=== PATIENT | male | born 1955 | race Caucasian/White ===

== ENCOUNTER 2016-11-27 15:00 | Observation (INO) | payer BC, OTHER ==
[~2016-11-27] VITALS: Ht 162.6 cm; Wt 76.4 kg
[~2016-11-27 15:00] MED LIST: LISI-360 PO; LORA1TAB PO; PHEN100 PO; SERO300T PO; SERT100 PO
[2016-11-27 15:09] VITALS: BP 160/124; PULSE 96; RESP 16; TEMP 97.4; O2SAT 95
[2016-11-27] MEDS ORDERED: SODIUM CHLOR 0.9% 1000 ML INJ 1,000 ML IV SCH (15:21)
--- NOTE | 2016-11-27 15:28 | PD ---
HPI Chief Complaint: GI Complaint Time Seen by Provider: 15:14 Travel History International Travel<30 days: No Contact w/Intl Traveler<30days: No Traveled to known affect area: No History of Present Illness HPI The patient is a 61-year-old male who presents to the emergency department for nausea, vomiting, diarrhea. The patient notes a history of intermittent dizziness for one month, and intermittent but progressive over the last week. The patient then developed some nausea earlier today followed by a projectile vomiting and abdominal cramping and subsequent diarrhea. Patient has multiple episodes of diarrhea which she describes as loose, watery, brown, will small amount of bright red blood when wiping. The patient has not followed up with his physician over the last month for his dizziness, did have an appointment but forgot his outpatient labs and subsequently missed his appointment. He does have an appointment in the near future with his primary physician once again. Patient does have a history of alcoholism, quit drinking alcohol in October 2014. He denies any recent head trauma denies any current headache or focal deficits. The patient's abdominal pain and cramping is diffuse, intermittent, and associated with diarrhea. The patient denies any fever, chills, or sweats. PFSH Past Medical History Bipolar Disorder: Yes (PT DENIES) Anxiety: Yes Depression: Yes Cancer: No Cardiovascular Problems: Yes (HTN) Diabetes: No Diminished Hearing: Yes (PT STATES "I HAVE A HEARING LOSS PROBLEM") Gastrointestinal Disorders: No Genitourinary: No Hepatitis: Yes (Hep C) Hiatal Hernia: No Hypertension: Yes Implanted Vascular Access Dvce: No Insomnia: Yes Musculoskeletal: No Neurologic: No Psychiatric: Yes (BIPOLAR PT DENIES) Respiratory: No Immunizations Current: Yes Thyroid Disease: No Past Surgical History Oral Surgery: Yes (TONSILLECTOMY CHILD) Pacemaker: No Tonsillectomy: Yes (childhood) Other Surgery: Yes ("benign lump taken off my back") Social History Alcohol Use: No (DENIES) Tobacco Use: Yes (1 ppd) Substance Use: Yes (THC, ETOH in the past) Allergies-Medications (Allergen,Severity, Reaction): Coded Allergies: No Known Allergies (Verified , 11/27/16) Reported Meds & Prescriptions Reported Meds & Active Scripts Active Dilantin 100 Mg Kapseals (Phenytoin Sodium) 100 Mg Cap 200 Mg PO BID Reported Seroquel 300 mg (Quetiapine Fumarate) 300 Mg Tab 800 Mg PO HS Lorazepam 1 Mg Tab 1 Mg PO BID Zoloft (Sertraline HCl) 100 Mg Tab 200 Mg PO DAILY Lisinopril 10 mg (Lisinopril) 10 Mg Tab 10 Mg PO DAILY Review of Systems Except as stated in HPI: all other systems reviewed are Neg General / Constitutional: No: Fever HENT: Positive: Lightheadedness Cardiovascular: No: Chest Pain or Discomfort, Palpitations, Tachycardia Respiratory: No: Shortness of Breath Gastrointestinal: Positive: Nausea, Vomiting, Diarrhea, Abdominal Pain Genitourinary: No: Dysuria Musculoskeletal: No: Myalgias, Arthralgias Neurologic: Positive: Dizziness Physical Exam Narrative GENERAL: Awake, alert, pleasant 61-year-old male who appears his stated age and is in no acute respiratory distress. SKIN: Focused skin assessment warm/dry. HEAD: Atraumatic. Normocephalic. EYES: Pupils equal and round. No scleral icterus. No injection or drainage. ENT: No nasal bleeding or discharge. Mucous membranes pink and moist. NECK: Trachea midline. No JVD. CARDIOVASCULAR: Regular rate and rhythm. No murmur appreciated. RESPIRATORY: No accessory muscle use. Clear to auscultation. Breath sounds equal bilaterally. GASTROINTESTINAL: Abdomen soft, non-tender, nondistended. No rebound tenderness , guarding, rigidity. Rectal: No gross blood. Guaiac positive. MUSCULOSKELETAL: No obvious deformities. No clubbing. No cyanosis. No edema. NEUROLOGICAL: Awake and alert. No obvious cranial nerve deficits. Motor grossly within normal limits. Normal speech. Nonfocal. PSYCHIATRIC: Appropriate mood and affect; insight and judgment normal. Data Data Last Documented VS Vital Signs Date Time Temp Pulse Resp B/P Pulse Ox O2 Delivery O2 Flow Rate FiO2 11/27/16 16:20 16 11/27/16 16:15 98 139/87 99 Room Air 11/27/16 15:09 97.4 Orders Complete Blood Count With Diff (11/27/16 15:21) Comprehensive Metabolic Panel (11/27/16 15:21) Lactic Acid (11/27/16 15:21) Prothrombin Time / Inr (Pt) (11/27/16 15:21) Act Partial Throm Time (Ptt) (11/27/16 15:21) Ct Abd/Pel W/O Iv Contrast (11/27/16 15:21) Iv Access Insert/Monitor (11/27/16 15:21) Ecg Monitoring (11/27/16 15:21) Oximetry (11/27/16 15:21) Morphine Inj (Morphine Inj) (11/27/16 15:30) Ondansetron Inj (Zofran Inj) (11/27/16 15:30) Sodium Chlor 0.9% 1000 Ml Inj (Ns 1000 M (11/27/16 15:21) Sodium Chloride 0.9% Flush (Ns Flush) (11/27/16 15:30) C Diff Toxin Pcr (11/27/16 16:25) Enteric Path (Stool) (11/27/16 16:25) Blood Culture (11/27/16 16:26) Ciprofloxacin 400 Mg Premix (Cipro 400 M (11/27/16 16:30) Metronidazole 500 Mg Inj (Flagyl 500 Mg (11/27/16 16:30) Labs Laboratory Tests Test 11/27/16 15:55 White Blood Count 19.2 TH/MM3 Red Blood Count 4.99 MIL/MM3 Hemoglobin 15.6 GM/DL Hematocrit 45.6 % Mean Corpuscular Volume 91.3 FL Mean Corpuscular Hemoglobin 31.3 PG Mean Corpuscular Hemoglobin 34.3 % Concent Red Cell Distribution Width 12.0 % Platelet Count 344 TH/MM3 Mean Platelet Volume 7.9 FL Neutrophils (%) (Auto) 86.8 % Lymphocytes (%) (Auto) 5.4 % Monocytes (%) (Auto) 5.7 % Eosinophils (%) (Auto) 0.3 % Basophils (%) (Auto) 1.8 % Neutrophils # (Auto) 16.7 TH/MM3 Lymphocytes # (Auto) 1.0 TH/MM3 Monocytes # (Auto) 1.1 TH/MM3 Eosinophils # (Auto) 0.1 TH/MM3 Basophils # (Auto) 0.3 TH/MM3 CBC Comment DIFF FINAL Differential Comment Prothrombin Time 11.3 SEC Prothromb Time International 1.0 RATIO Ratio Activated Partial 26.1 SEC Thromboplast Time Sodium Level 136 MEQ/L Potassium Level 4.5 MEQ/L Chloride Level 102 MEQ/L Carbon Dioxide Level 23.6 MEQ/L Anion Gap 10 MEQ/L Blood Urea Nitrogen 31 MG/DL Creatinine 2.30 MG/DL Estimat Glomerular Filtration 29 ML/MIN Rate Random Glucose 121 MG/DL Lactic Acid Level 1.7 mmol/L Calcium Level 9.3 MG/DL Total Bilirubin 0.7 MG/DL Aspartate Amino Transf 25 U/L (AST/SGOT) Alanine Aminotransferase 29 U/L (ALT/SGPT) Alkaline Phosphatase 100 U/L Total Protein 7.9 GM/DL Albumin 4.2 GM/DL MDM Medical Decision Making Medical Screen Exam Complete: Yes Emergency Medical Condition: Yes Medical Record Reviewed: Yes Interpretation(s) Last Impressions Abdomen/Pelvis CT 11/27/16 1521 Signed Impressions: Service Date/Time: Sunday, November 27, 2016 15:29 - CONCLUSION: No acute disease. Carmelo Potter MD Laboratory Tests Test 11/27/16 15:55 White Blood Count 19.2 TH/MM3 Red Blood Count 4.99 MIL/MM3 Hemoglobin 15.6 GM/DL Hematocrit 45.6 % Mean Corpuscular Volume 91.3 FL Mean Corpuscular Hemoglobin 31.3 PG Mean Corpuscular Hemoglobin 34.3 % Concent Red Cell Distribution Width 12.0 % Platelet Count 344 TH/MM3 Mean Platelet Volume 7.9 FL Neutrophils (%) (Auto) 86.8 % Lymphocytes (%) (Auto) 5.4 % Monocytes (%) (Auto) 5.7 % Eosinophils (%) (Auto) 0.3 % Basophils (%) (Auto) 1.8 % Neutrophils # (Auto) 16.7 TH/MM3 Lymphocytes # (Auto) 1.0 TH/MM3 Monocytes # (Auto) 1.1 TH/MM3 Eosinophils # (Auto) 0.1 TH/MM3 Basophils # (Auto) 0.3 TH/MM3 CBC Comment DIFF FINAL Differential Comment Prothrombin Time 11.3 SEC Prothromb Time International 1.0 RATIO Ratio Activated Partial 26.1 SEC Thromboplast Time Sodium Level 136 MEQ/L Potassium Level 4.5 MEQ/L Chloride Level 102 MEQ/L Carbon Dioxide Level 23.6 MEQ/L Anion Gap 10 MEQ/L Blood Urea Nitrogen 31 MG/DL Creatinine 2.30 MG/DL Estimat Glomerular Filtration 29 ML/MIN Rate Random Glucose 121 MG/DL Lactic Acid Level 1.7 mmol/L Calcium Level 9.3 MG/DL Total Bilirubin 0.7 MG/DL Aspartate Amino Transf 25 U/L (AST/SGOT) Alanine Aminotransferase 29 U/L (ALT/SGPT) Alkaline Phosphatase 100 U/L Total Protein 7.9 GM/DL Albumin 4.2 GM/DL Differential Diagnosis Differential diagnosis includes colitis, enteritis, diverticulitis, infectious diarrhea, hemorrhagic colitis, upper GI bleed, lower GI bleed, internal hemorrhoids, anal fissure. Narrative Course IV was established, labs are drawn and sent, and the patient was placed on cardiac telemetry monitoring and continuous pulse oximetry monitoring. The patient's rectal exam reveals no gross blood, however, was guaiac positive. The patient did have an episode of diarrhea in the emergency department, not visualized by myself or another staff member, however, he states it was bright red blood in the diarrhea. Therefore, CT of the abdomen and pelvis was ordered to evaluate for possible colitis. The patient was administered morphine, Zofran , Pepcid, and IV fluids. CT of the abdomen and pelvis was negative. Patient's white count was elevated at 19.2. Creatinine is elevated at 2.3, baseline is normal when I review the EMR. Patient had several bloody bowel movements which were blood and mucus with foul smell. Patient appears to have hemorrhagic colitis, therefore, stool studies were ordered. Blood culture was sent to lab and the patient was administered Cipro 400 mg intravenously and Flagyl 500 mg intravenously. The patient will be admitted 23 hour observation until stool studies and blood cultures are obtained. If they're negative, patient be discharged home. The patient will also need IV fluids and reevaluation of his BUN/creatinine. HemaPrompt Point of Care Internal Pos. & Neg. Controls: Passed Fecal Specimen Occult Blood: Positive Physician Communication [facility] I discussed the patient with Dr. Soliman who agrees with 23 hour observation. Diagnosis Primary Impression: Bloody diarrhea Additional Impression: Acute kidney injury Admitting Information Admitting Physician Requests: Observation Condition: Stable Fabián Yun MD Nov 27, 2016 15:28
[2016-11-27] MEDS ORDERED: SODIUM CHLORIDE 0.9% FLUSH 10 ML FLUSH IV FLUSH PRN ×2 (15:30→17:00)
[2016-11-27] MEDS ORDERED: MORPHINE SULFATE 4 MG/ML INJ IV PUSH ONE ×2 (15:30→17:15)
[2016-11-27] MEDS ORDERED: ONDANSETRON HCL 4 MG/2 ML VIAL IVP ONE (15:30)
[2016-11-27 16:01] VITALS: O2SAT 100
--- NOTE | 2016-11-27 16:08 | RADHPO ---
EXAM DATE/TIME: 11/27/2016 15:29 [facility] COMPARISON: CT ABDOMEN & PELVIS W CONTRAST, July 20, 2015, 6:13. INDICATIONS : Abdominal pain, nausea, vomiting, diarrhea, and blood in stool. ORAL CONTRAST: No oral contrast ingested. RADIATION DOSE: 12.08 CTDIvol (mGy) MEDICAL HISTORY : Hepatitis C. Hypertension. SURGICAL HISTORY : None. ENCOUNTER: Initial ACUITY: 1 month PAIN SCALE: 8/10 LOCATION: abdomen TECHNIQUE: Volumetric scanning of the abdomen and pelvis was performed. Using automated exposure control and ad justment of the mA and/or kV according to patient size, radiation dose was kept as low as reasonably achievable to obtain optimal diagnostic quality images. FINDINGS: LOWER LUNGS: The visualized lower lungs are clear. LIVER: Homogeneous density without lesion. There is no dilation of the biliary tree. No calcified gallston es. SPLEEN: Normal size without lesion. PANCREAS: Within normal limits. KIDNEYS: Normal in size and shape. There is no mass, stone, or hydronephrosis. 2 cm exophytic cyst off the mi dpole the left kidney is stable. ADRENAL GLANDS: Within normal limits. VASCULAR: There is no aortic aneurysm. BOWEL/MESENTERY: The stomach, small bowel, and colon demonstrate no acute abnormality. There is no free intraperitone al air or fluid. ABDOMINAL WALL: Within normal limits. RETROPERITONEUM: There is no lymphadenopathy. BLADDER: No wall thickening or mass. REPRODUCTIVE: Within normal limits. INGUINAL: There is no lymphadenopathy or hernia. MUSCULOSKELETAL: Within normal limits for patient age. CONCLUSION: No acute disease. Carmelo Potter MD on November 27, 2016 at 16:01 Board Certified Radiologist. This report was verified electronically.
[2016-11-27 16:11] LABS: AUTOMATED NEUTROPHIL # 16.7 TH/MM3 (1.8-7.7); BASOPHIL # 0.3 TH/MM3 (0-0.2); BASOPHIL % 1.8 % (0.0-2.0); EOSINOPHIL # 0.1 TH/MM3 (0-0.4); EOSINOPHIL % 0.3 % (0.0-4.0); HEMATOCRIT 45.6 % (39.0-51.0); LYMPH % 5.4 % (9.0-44.0); MEAN CELL VOLUME 91.3 FL (80.0-100.0); MEAN CORPUSCULAR HEMOGLOBIN 31.3 PG (27.0-34.0); MEAN CORPUSCULAR HGB CONC 34.3 % (32.0-36.0); MONO % 5.7 % (0.0-8.0); NEUT % 86.8 % (16.0-70.0); PLATELET COUNT 344 TH/MM3 (150-450); RED BLOOD COUNT 4.99 MIL/MM3 (4.50-5.90); WHITE BLOOD COUNT 19.2 TH/MM3 (4.0-11.0)
[2016-11-27 16:12] LABS: HEMO FLAGS DIFF FINAL
[2016-11-27 16:15] VITALS: BP 139/87; PULSE 98; RESP 18; O2SAT 99
[2016-11-27 16:20] LABS: CHLORIDE 102 MEQ/L (98-107); POTASSIUM 4.5 MEQ/L (3.5-5.1); SODIUM (NA) 136 MEQ/L (136-145)
[2016-11-27 16:23] LABS: ANION GAP 10 MEQ/L (5-15); APTT (PATIENT) 26.1 SEC (24.3-30.1); BICARBONATE 23.6 MEQ/L (21.0-32.0); PROTHROMBIN TIME - PATIENT 11.3 SEC (9.8-11.6)
[2016-11-27 16:24] LABS: BLOOD UREA NITROGEN 31 MG/DL (7-18)
[2016-11-27 16:26] LABS: ALT (GPT) 29 U/L (12-78); AST (GOT) 25 U/L (15-37)
[2016-11-27 16:27] LABS: GLOMERULAR FILTRATION RATE 29 ML/MIN (>89)
[2016-11-27 16:28] LABS: TOTAL BILIRUBIN ADULT 0.7 MG/DL (0.2-1.0)
[2016-11-27 16:29] LABS: ALKALINE PHOSPHATASE 100 U/L (45-117)
[2016-11-27] MEDS ORDERED: CIPROFLOXACIN 400 MG PREMIX 200 ML IV ONE (16:30)
[2016-11-27] MEDS ORDERED: metroNIDAZOLE 500 MG INJ 100 ML IV ONE (16:30)
[2016-11-27] MEDS: SODIUM CHLOR 0.9% 1000 ML INJ 1,000 ML IV SCH (16:49)
[2016-11-27] MEDS ORDERED: NALOXONE HCL 0.4 MG/ML AMP IV PRN (17:00)
[2016-11-27 18:25] VITALS: BP 164/96; PULSE 86; RESP 18; O2SAT 100
[2016-11-27] MEDS ORDERED: QUET400XR PO (18:29)
[2016-11-27] MEDS ORDERED: WELL200T PO (18:29)
[2016-11-27] MEDS ORDERED: AMBI12.5 PO (18:29)
[2016-11-27] MEDS ORDERED: ADDE20 PO (18:29)
[2016-11-27] MEDS ORDERED: LORA1TAB12 PO (18:29)
[2016-11-27] MEDS ORDERED: LISI-515 PO (18:29)
[2016-11-27] MEDS ORDERED: DICYCLOMINE HCL 20 MG/2 ML VIAL IM ONE (18:30)
[2016-11-27 19:25] LABS: C. DIFF EPI 027 PRESUMPTIVE NEGATIVE (NEGATIVE); C. DIFF TOXIN PCR NEGATIVE (NEGATIVE)
[2016-11-27 20:00] VITALS: BP 139/98; PULSE 81; RESP 18; TEMP 96.3; O2SAT 100
[2016-11-27] MEDS ORDERED: CALCIUM CARBONATE 500 MG CHEWABLE TAB CHEW PRN (20:30)
[2016-11-27] MEDS ORDERED: ACETAMINOPHEN 325 MG TAB PO PRN (20:30)
[2016-11-27] MEDS ORDERED: cloNIDine HCL 0.1 MG TAB PO PRN (20:30)
[2016-11-27] MEDS: SODIUM CHLORIDE 0.9% FLUSH 10 ML FLUSH IV FLUSH SCH (21:00)
[2016-11-27] MEDS ORDERED: NICOTINE 14 MG/24 HR PATCH T-DERMAL ONE (23:00)
[2016-11-27] MEDS ORDERED: DICYCLOMINE HCL 20 MG/2 ML VIAL IM PRN (23:00)
[2016-11-27] MEDS ORDERED: QUETIAPINE FUMARATE 200 MG PO SCH (23:00)
[2016-11-28] VITALS: BP 145/91; PULSE 86; RESP 18; TEMP 98.7; O2SAT 100
[2016-11-28] MEDS: metroNIDAZOLE 500 MG INJ 100 ML IV SCH ×3 (01:24→17:01)
[2016-11-28] MEDS: SODIUM CHLOR 0.9% 1000 ML INJ 1,000 ML IV SCH ×3 (01:26→20:44)
[2016-11-28] MEDS ORDERED: CIPROFLOXACIN 400 MG PREMIX 200 ML IV SCH (05:00)
[2016-11-28 06:13] LABS: AUTOMATED NEUTROPHIL # 11.7 TH/MM3 (1.8-7.7); BASOPHIL % 0.3 % (0.0-2.0); EOSINOPHIL # 0.1 TH/MM3 (0-0.4); EOSINOPHIL % 0.6 % (0.0-4.0); HEMATOCRIT 41.7 % (39.0-51.0); HEMO FLAGS DIFF FINAL; LYMPH % 9.2 % (9.0-44.0); LYMPHOCYTE # 1.3 TH/MM3 (1.0-4.8); MEAN CELL VOLUME 90.4 FL (80.0-100.0); MEAN CORPUSCULAR HEMOGLOBIN 31.5 PG (27.0-34.0); MEAN CORPUSCULAR HGB CONC 34.8 % (32.0-36.0); MONO % 8.1 % (0.0-8.0); NEUT % 81.8 % (16.0-70.0); PLATELET COUNT 256 TH/MM3 (150-450); RED BLOOD COUNT 4.61 MIL/MM3 (4.50-5.90); RED CELL DISTRIBUTION WIDTH 11.9 % (11.6-17.2); WHITE BLOOD COUNT 14.2 TH/MM3 (4.0-11.0)
[2016-11-28 06:19] LABS: POTASSIUM 4.5 MEQ/L (3.5-5.1)
[2016-11-28 06:40] LABS: BICARBONATE 20.9 MEQ/L (21.0-32.0)
[2016-11-28 08:00] VITALS: BP 115/77; PULSE 90; RESP 18; TEMP 98.2; O2SAT 96
[2016-11-28] MEDS: ONDANSETRON HCL 4 MG/2 ML VIAL IVP PRN ×2 (08:35→20:42)
[2016-11-28] MEDS: SODIUM CHLORIDE 0.9% FLUSH 10 ML FLUSH IV FLUSH SCH ×2 (08:37→20:41)
[2016-11-28] MEDS ORDERED: PNEUMOCOCCAL POLYVALENT INJ 25 MCG/0.5 ML SYR IM ONE (10:00)
[2016-11-28 12:00] VITALS: BP 114/80; PULSE 70; RESP 18; TEMP 98.2; O2SAT 96
[2016-11-28] MEDS: PANTOPRAZOLE SOD 40 MG DELAYED RELEASE TAB PO SCH (13:50)
[2016-11-28] MEDS: LORazepam 1 MG TAB PO PRN ×2 (13:51→20:41)
[2016-11-28] MEDS ORDERED: ZOLPIDEM TARTRATE 10 MG TAB PO PRN (14:00)
[2016-11-28 16:00] VITALS: BP 118/80; PULSE 72; RESP 16; TEMP 98.2; O2SAT 96
--- NOTE | 2016-11-28 16:51 | HHI.HP ---
[facility] Service [facility] Primary Care Physician Mckenna Rodriguez MD Admission Diagnosis bloody diarrhea, acute kidney injury, rule out hemorrhagic colitis Diagnoses: (1) Bright red blood per rectum Diagnosis: Principal (2) Diarrhea in adult patient Diagnosis: Principal Chief Complaint: Bright red blood per rectum Travel History International Travel<30 Days: No Contact w/Intl Traveler <30 Da: No Traveled to Known Affected Are: No History of Present Illness 61-year-old male with known history of underlying psychiatric disorder , hepatitis C who presented to hospital because of bright red blood per rectum. Patient states that his normal state of health until 3 days ago when he started developing lightheadedness and dizziness. He did not have any episodes of syncope, visual disturbances, headache. The patient states that he had episode of watery diarrhea yesterday and he noticed bright red blood in the toilet. He indicates that he still experiencing bright red blood per rectum whenever he sits down to go to the bathroom. He states that he does not have any formed stool this time. And even when he sits down to urinate he does have approximately 2 ounces of bright red blood oozing out of his rectum. Patient was evaluated in emergency department he is hemodynamically stable this time. Hemoglobin has remained stable. Patient did have leukocytosis which has significant improved with IV hydration. Patient was recommended observation for further evaluation management. Review of Systems Constitutional: COMPLAINS OF: Dizziness, DENIES: Diaphoretic episodes, Fatigue , Fever, Weight gain, Weight loss, Chills, Change in appetite, Night Sweats Eyes: DENIES: Blurred vision, Diplopia, Eye inflammation, Eye pain, Vision loss , Double Vision Ears, nose, mouth, throat: DENIES: Vertigo, Nasal discharge, Throat pain, Ear Pain, Running Nose, Sinus Pain Respiratory: DENIES: Apneas, Cough, Snoring, Wheezing, Hemoptysis, Sputum production, Shortness of breath Cardiovascular: DENIES: Chest pain, Palpitations, Syncope, Dyspnea on Exertion , PND, Lower Extremity Edema, Orthopnea, Claudication Gastrointestinal: COMPLAINS OF: Bloody stools, Diarrhea, DENIES: Abdominal pain, Black stools, Constipation, Nausea, Vomiting, Difficulty Swallowing, Anorexia Neurologic: DENIES: Abnormal gait, Headache, Localized weakness, Paresthesias, Seizures, Speech Problems, Tremor, Poor Balance Past Family Social History Past Medical History Underlying psychiatric disorder, records indicate bipolar Hepatitis C status post treatment Past Surgical History Tonsillectomy Reported Medications Reported Meds & Active Scripts Active Reported Ambien CR (Zolpidem Tartrate) 12.5 Mg Tab 12.5 Mg PO HS PRN Seroquel XR (Quetiapine Fumarate) 400 Mg Tab 800 Mg PO HS Adderall (Amphetamine-Dextroamphetamine) 20 Mg Tab 20 Mg PO BID Avoid late evening doses. Space doses at least 4 to 6 hours if more than once/day dosing. Lorazepam 1 Mg Tab 1 Mg PO BID Wellbutrin SR 12 HR (Bupropion HCl) 200 Mg Tab 200 Mg PO Q12HR Lisinopril 20 Mg Tab 20 Mg PO DAILY Allergies: Coded Allergies: No Known Allergies (Verified , 11/27/16) Family History Reviewed and unremarkable Social History Patient continues smoke cigarettes a pack a cigarettes a day since he was a teenager. Does use marijuana occasionally. Denies any alcohol use Physical Exam Vital Signs Vital Signs Date Time Temp Pulse Resp B/P Pulse Ox O2 Delivery O2 Flow Rate FiO2 11/28/16 12:00 98.2 70 18 114/80 96 11/28/16 08:00 98.2 90 18 115/77 96 11/28/16 00:00 98.7 86 18 145/91 100 11/27/16 20:00 96.3 81 18 139/98 100 11/27/16 18:25 86 18 164/96 100 Room Air Physical Exam GENERAL: Well-developed, well-nourished, in no acute distress. alert and orientated HEENT: Head is normocephalic without any lesions or masses noted. Facial features are symmetric. Eyes: Pupils equal round reactive to light. Extraocular muscles are intact. Conjunctivae were clear. Oropharyngeal: Pharynx without any erythema edema. Tongue is midline without deviation. Buccal mucosa is moist without any masses or lesions NECK: Supple without any masses. Trachea midline no deviation. No JVD, no bruits are appreciated CARDIAC: Regular rhythm, regular rate. S1/S2 are heard. No murmurs gallops or rubs. LUNGS: Clear to auscultation bilaterally. No wheeze, rhonchi or rales. No use of accessory muscles on inspiration or expiration. ABDOMEN: Soft, nontender. Nondistended. Bowel sounds heard in all 4 quadrants. No organomegaly or masses. Negative rebound, negative guarding EXTREMITIES: No edema, pulses are equal bilaterally. No cyanosis or clubbing NEUROLOGY: Mood and affect appear appropriate. Cranial nerves II through XII grossly intact. Muscle strength 5/5 in upper and lower extremities bilaterally. Deep tendon reflexes are 2+ in upper and lower extremities bilaterally. Laboratory Laboratory Tests Test 11/28/16 05:55 White Blood Count 14.2 Red Blood Count 4.61 Hemoglobin 14.5 Hematocrit 41.7 Mean Corpuscular Volume 90.4 Mean Corpuscular Hemoglobin 31.5 Mean Corpuscular Hemoglobin 34.8 Concent Red Cell Distribution Width 11.9 Platelet Count 256 Mean Platelet Volume 7.8 Neutrophils (%) (Auto) 81.8 Lymphocytes (%) (Auto) 9.2 Monocytes (%) (Auto) 8.1 Eosinophils (%) (Auto) 0.6 Basophils (%) (Auto) 0.3 Neutrophils # (Auto) 11.7 Lymphocytes # (Auto) 1.3 Monocytes # (Auto) 1.1 Eosinophils # (Auto) 0.1 Basophils # (Auto) 0.0 CBC Comment DIFF FINAL Differential Comment Sodium Level 137 Potassium Level 4.5 Chloride Level 106 Carbon Dioxide Level 20.9 Anion Gap 10 Blood Urea Nitrogen 22 Creatinine 1.10 Estimat Glomerular Filtration 68 Rate Random Glucose 123 Calcium Level 8.0 Date/Time Procedure Status Source Growth 11/28/16 14:55 Stool Pus (LAURA) Received Stool Stool Pending 11/28/16 14:55 Received Stool Stool Pending 11/27/16 16:35 Aerobic Blood Culture - Preliminary Resulted Blood Peripheral NO GROWTH IN 1 DAY 11/27/16 16:35 Anaerobic Blood Culture - Preliminary Resulted Blood Peripheral NO GROWTH IN 1 DAY Result Diagram: 11/28/16 0555 11/28/16 0555 Imaging Last Impressions Abdomen/Pelvis CT 11/27/16 1521 Signed Impressions: Service Date/Time: Sunday, November 27, 2016 15:29 - CONCLUSION: No acute disease. Carmelo Potter MD Assessment and Plan Problem List: (1) Bright red blood per rectum ICD Code: K62.5 Status: Acute (2) Diarrhea in adult patient ICD Code: R19.7 Status: Acute (3) Acute kidney injury ICD Code: N17.9 Status: Acute Assessment and Plan Bright red blood per rectum with associated diarrhea. Patient still with right red blood per rectum, no longer experiencing diarrhea illness. Unknown etiology could be secondary to proctitis, polyp, diverticulitis, hemorrhoid. Hemoglobin stable this time. GI consulted for further recommendations will likely need colonoscopy whether performed inpatient versus outpatient depends on their recommendations. Leukocytosis: Improving. Could be secondary to concentration versus infection. Patient continued on Cipro and Flagyl, CT scan does not indicate any acute abnormality or colitis. RICARDA 2/[address] IV hydration Underlying psychiatric disorder, bipolar disorder, attention deficit disorder: Home medications have been continued DVT prevention: Sequential compression devices, avoid chemical prophylaxis secondary to rectal bleeding Written by Liam Clifton PA-C, acting as scribe for Dr. Walton on 11/28/16 at 1430. The documentation accurately reflects the work and decisions performed face-to- face by Dr. Walton on 11/28/16 at 1430 This note was transcribed by scribe Liam Clifton PA-C. I, Dr. Negrito Walton personally performed the history, physical exam, and medical decision making; and confirmed the accuracy of the information in the transcribed note. Authenticated by Dr. Negrito Walton on 11/28/16 at 19:31. . Liam Clifton Nov 28, 2016 16:51 Negrito Walton MD Nov 28, 2016 19:31
[2016-11-28] MEDS ORDERED: PEG (High)/E-LYTE SOLN 4000 ML BTL PO ONE (17:15)
[2016-11-28] MEDS: CIPROFLOXACIN 400 MG PREMIX 200 ML IV SCH (17:57)
[2016-11-28] MEDS: LACTOBACILLUS ACIDOPHILUS TAB PO SCH (17:57)
[2016-11-28 20:00] VITALS: BP 149/101; PULSE 85; RESP 20; TEMP 99.1; O2SAT 100
--- NOTE | 2016-11-28 20:04 | MB ---
cc: LAURA SMART M.D. DATE OF CONSULTATION: 11/28/2016. REASON FOR CONSULTATION: Nausea, vomiting and bloody diarrhea. REFERRING PHYSICIAN: Dr. Negrito Walton. HISTORY OF PRESENT ILLNESS: Mr. Felix is a 61-year-old gentleman who stated he was in his usual state of health until yesterday. He stated he ate at [employer], some processed food that he usually does not consume ,and after that he did not feel quite right. He felt bloated and distended. He stated he took some gas pills to try to get rid of the gas. He also strained a lot trying to get rid of the gas and after that he started having some a rectal bleed. He reports having bright red blood per rectum. Also he had some nausea and vomiting at the same time. No further episodes of vomiting since admission. He is actually tolerating the food quite well. He continues to have some bright red blood per rectum. He reports a couple of ounces every time he goes to urinate. He thinks he may have had an endoscopy and colonoscopy in the last 5 years but he is not quite sure. He did have for sure a colonoscopy 11 years ago back in [place] and according to him that was normal. He does have a history of hepatitis C status post treatment. 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 PAST MEDICAL HISTORY: 1. Bipolar disorder. 2. Hepatitis C. PAST SURGICAL HISTORY: Tonsillectomy. MEDICATIONS: 1. Ambien. 2. . 3. Adderall. 4. Lorazepam. 5. Wellbutrin. 6. Lisinopril. MEDICATIONS IN THE HOSPITAL: 1. In the hospital, the patient was started on Lactinex. 2. Ciprofloxacin. 3. Protonix. 4. Ativan. 5. Metronidazole. 6. Bentyl. ALLERGIES: NO KNOWN ALLERGIES. FAMILY HISTORY: No family history of colon cancer or any other GI pathology. SOCIAL HISTORY: He smokes a pack of cigarettes daily since he was a teenager. He denies any marijuana use. He denies any alcohol use. REVIEW OF SYSTEMS: CONSTITUTIONAL: On review of systems, he denies any fever, chills, weight loss or weight gain. HEAD, EYES, EARS, NOSE, THROAT: No alteration in baseline hearing or visual acuity. PULMONARY: Denies any chest pain or shortness of breath. GASTROINTESTINAL: As above. GENITOURINARY: Denies any dysuria or hematuria. HEMATOLOGICAL: No history of anemia or bleeding disorder. SKIN: No alteration in baseline skin lesions. NEUROLOGICAL: No history of TIA or CVA kind of symptoms. PHYSICAL EXAMINATION: GENERAL: On clinical exam, the patient is sitting comfortably in bed in no acute distress. VITAL SIGNS: His temperature is 92, pulse 72, respirations 16, blood pressure is 118/80, heart rate is 96. HEAD, EYES, EARS, NOSE, THROAT: Pupils equal, round and reactive to light and accommodation. . NECK: No JVD. No lymphadenopathy. CHEST: Clear to auscultation and palpation. CARDIOVASCULAR: S1-S2 no murmur. ABDOMEN: Abdomen soft and obese. Bowel sounds are present. COLD ROLLING COORDINATOR: Awake, alert, oriented x3. No focal signs identified. LABORATORY DATA: His hemoglobin is 14.5 and was 15.6. White count 19.2 dropped to 14.2, platelets 344,000 and dropped to 256,000. PT/INR 11. His BUN was 31 on admission, creatinine 2.3 currently 22 and 1.10. Stool studies were sent and are pending. IMAGING STUDIES: He had a CT abdomen and pelvis which showed no acute disease. IMPRESSION Mr. Felix is a 61-year-old gentleman admitted with rectal bleed, nausea and vomiting after consuming possible suspicious food at [facility]. The differential includes food poisoning, gastroenteritis, ischemic colitis versus peptic ulcer disease or hemorrhoidal bleed. RECOMMENDATIONS: 1. Upper endoscopy and colonoscopy will be scheduled in the morning. The risks and benefits were discussed with the patient. 2. Clear liquid diet. 3. Continue current treatment. 4. Monitor hemoglobin and hematocrit closely and if further bleeding, please notify GI. I would like to thank Dr. Walton for referring him to our office for consultation. MD SCOTTY Soni/ALEJANDRA /5:30 PM /7:51 PM [facility]
[2016-11-28] MEDS: buPROPion HCL 100 MG SUSTAINED RELEASE TAB PO SCH (20:41)
[2016-11-28] MEDS ORDERED: AMPHETAMINE PO SCH (21:00)
[2016-11-28] MEDS ORDERED: DEXTROAMPHETAMINE PO SCH (21:00)
[2016-11-28] MEDS: QUEtiapine FUMARATE 200 MG TAB PO SCH (21:52)
[2016-11-29] VITALS: BP 106/71; PULSE 111; RESP 20; TEMP 99.1; O2SAT 99
[2016-11-29] MEDS: metroNIDAZOLE 500 MG INJ 100 ML IV SCH ×2 (01:00→09:14)
[2016-11-29] MEDS: CIPROFLOXACIN 400 MG PREMIX 200 ML IV SCH (05:28)
[2016-11-29 06:55] VITALS: BP 135/80; PULSE 91; RESP 18; TEMP 97.5; O2SAT 99
[2016-11-29 07:00] LABS: POTASSIUM 3.9 MEQ/L (3.5-5.1)
[2016-11-29] MEDS: PATIENT OWN NARCOTIC MED 1 PO SCH ×2 (07:00→12:44)
[2016-11-29 07:04] LABS: BICARBONATE 22.2 MEQ/L (21.0-32.0)
[2016-11-29] MEDS ORDERED: PROPOFOL 200 MG/20 ML AMP IV ONE (07:47)
[2016-11-29 07:58] LABS: AUTOMATED NEUTROPHIL # 12.4 TH/MM3 (1.8-7.7); BASOPHIL % 0.1 % (0.0-2.0); EOSINOPHIL # 0.1 TH/MM3 (0-0.4); EOSINOPHIL % 0.6 % (0.0-4.0); HEMATOCRIT 36.4 % (39.0-51.0); LYMPH % 10.4 % (9.0-44.0); LYMPHOCYTE # 1.6 TH/MM3 (1.0-4.8); MEAN CELL VOLUME 91.3 FL (80.0-100.0); MONO % 7.3 % (0.0-8.0); NEUT % 81.6 % (16.0-70.0); PLATELET COUNT 229 TH/MM3 (150-450); RED BLOOD COUNT 3.99 MIL/MM3 (4.50-5.90); RED CELL DISTRIBUTION WIDTH 12.5 % (11.6-17.2); WHITE BLOOD COUNT 15.2 TH/MM3 (4.0-11.0)
[2016-11-29 08:00] LABS: HEMO FLAGS DIFF FINAL
--- NOTE | 2016-11-29 08:10 | GIPROC ---
[facility] [address] [place] [address], [id number] COLONOSCOPY PROCEDURE REPORT EXAM DATE: 11/29/2016 PATIENT NAME: Jhonny Felix MR #: [id number] BIRTHDATE: 1955 ENDOSCOPIST: Negrita Acharya MD ORDER #: [id number] LOG LOADER HELPER: Darlene Koch and Ade Joyner STATUS: inpatient INDICATIONS: The patient is a 61 yr old male here for a colonoscopy due to bloody diarrhea PROCEDURE PERFORMED: Colonoscopy with biopsy MEDICATIONS: None and Per Anesthesia. PREP QUALITY: fair PREP TYPE:GoLytely ESTIMATED BLOOD LOSS: None CONSENT: The patient understands the risks and benefits of the procedure and understands that these risks include, but are not limited to: sedation, allergic reaction, infection, perforation and/or bleeding. Alternative means of evaluation and treatment include, among others: physical exam, x-rays, and/or surgical intervention. The patient elects to proceed with this endoscopic procedure. medical equipment was checked for proper function. Hand hygiene and appropriate measures for infection prevention was taken. After the risks, benefits and alternatives of the procedure were thoroughly explained, Informed consent was verified, confirmed and timeout was successfully executed by the treatment team. A digital exam revealed external hemorrhoids The Pentax [id number] endoscope was introduced through the anus and advanced to the cecum, which was identified by both the appendix and ileocecal valve. The instrument was then slowly withdrawn as the colon was fully examined. COLON FINDINGS: Colitis involving splenic flexure,descending and sigmoid-biopsies taken mild erythema in midtransverse-biopsy rest of colon normal-biopsies from ascending and rectum two polyps in [id number] 5 mm-polypectomy with cold biopsy forceps, another 7 mm polyp-cold snare polypectomy with complete removal. Retroflexed views revealed internal hemorrhoids and Retroflexed views revealed medium internal hemorrhoids The scope was then completely withdrawn from the patient and the procedure terminated. PROCEDURE WITHDRAWAL TIME:10minutes ADVERSE EVENTS: There were no complications. IMPRESSIONS: 1. Colitis involving splenic flexure,descending and sigmoid-biopsies taken mild erythema in midtransverse-biopsy rest of colon normal-biopsies from ascending and rectum two polyps in [id number] 5 mm-polypectomy with cold biopsy forceps, another 7 mm polyp-cold snare polypectomy with complete removal 2. Retroflexed views revealed internal hemorrhoids 3. Retroflexed views revealed medium internal hemorrhoids 4. Revealed external hemorrhoids RECOMMENDATIONS: 1. Await biopsy results. Biopsy results will not be ready for 7-10 days. If you don't hear from us in two weeks, call our office for results. 2. Avoid NSAIDS and Aspirin 3. Probiotics from any [facility] or health food store 4. Soft diet cta stool studies RECALL: Colonoscopy, pending biopsy results Negrita Acharya MD eSigned: Negrita Acharya MD 11/29/2016 8:10 AM cc: PATIENT NAME: Jhonny Felix MR#: [id number]
[2016-11-29 09:00] VITALS: BP 118/70; PULSE 88; RESP 18; TEMP 98.1; O2SAT 96
[2016-11-29] MEDS: SODIUM CHLORIDE 0.9% FLUSH 10 ML FLUSH IV FLUSH SCH (09:00)
[2016-11-29] MEDS ORDERED: REMOVE OLD PATCH T-DERMAL SCH ×2 (09:00→21:00)
[2016-11-29] MEDS ORDERED: NICOTINE 21 MG/24 HR PATCH T-DERMAL SCH (09:00)
[2016-11-29] MEDS: QUEtiapine FUMARATE 200 MG TAB PO SCH ×2 (09:00→09:15)
[2016-11-29] MEDS: LORazepam 1 MG TAB PO PRN (09:14)
[2016-11-29] MEDS: PANTOPRAZOLE SOD 40 MG DELAYED RELEASE TAB PO SCH (09:14)
[2016-11-29] MEDS: buPROPion HCL 100 MG SUSTAINED RELEASE TAB PO SCH (09:15)
[2016-11-29] MEDS: LACTOBACILLUS ACIDOPHILUS TAB PO SCH ×2 (09:15→12:44)
--- NOTE | 2016-11-29 09:28 | HHI.PR ---
Subjective Remarks Patient seen and examined today with Dr. Walton. Patient has undergone panendoscopy this morning. Did show some colitis, hemorrhoids, polyps. GI recommending further studies with MRA of the abdomen. Patient himself denies any recurrent rectal bleeding. He does have tenderness noted left lower quadrant when he presses deep. He has not had a bowel movement since yesterday. Objective Vitals Vital Signs Date Time Temp Pulse Resp B/P Pulse Ox O2 Delivery O2 Flow Rate FiO2 11/29/16 09:00 98.1 88 18 118/70 96 11/29/16 08:40 85 16 125/72 100 11/29/16 08:00 97.9 79 16 131/73 99 11/29/16 06:55 97.5 91 18 135/80 99 11/29/16 00:00 99.1 111 20 106/71 99 Automatic Cuff 11/28/16 20:00 99.1 85 20 149/101 100 11/28/16 16:00 98.2 72 16 118/80 96 11/28/16 12:00 98.2 70 18 114/80 96 I/O 11/28/16 11/28/16 11/28/16 11/29/16 11/29/16 11/29/16 07:00 15:00 23:00 07:00 15:00 23:00 Intake Total 871 ml 2000 ml 0 ml Output Total 1 ml Balance 871 ml -1 ml 2000 ml 0 ml Intake Oral 240 ml 2000 ml 0 ml IV Total 631 ml Output Stool Total 1 ml # Voids 2 2 8 2 # Bowel Movements 1 12 2 Result Diagram: 11/29/16 0555 11/29/16 0555 Objective Remarks GENERAL: Well-developed, well-nourished, in no acute distress. alert and orientated HEENT: Head is normocephalic without any lesions or masses noted. Facial features are symmetric. Eyes: Extraocular muscles are intact. Conjunctivae were clear. NECK: Supple without any masses. Trachea midline no deviation. No JVD, CARDIAC: Regular rhythm, regular rate. S1/S2 are heard. No murmurs gallops or rubs. LUNGS: Clear to auscultation bilaterally. No wheeze, rhonchi or rales. No use of accessory muscles on inspiration or expiration. ABDOMEN: Soft, nontender. Nondistended. Bowel sounds heard in all 4 quadrants. No organomegaly or masses. Negative rebound, negative guarding EXTREMITIES: No edema, pulses are equal bilaterally. No cyanosis or clubbing NEUROLOGY: Mood and affect appear appropriate. Cranial nerves II through XII grossly intact. Moving all extremities, speech is clear Urinary Catheter: No Vascular Central Line Catheter: No A/P Problem List: (1) Bright red blood per rectum ICD Code: K62.5 Status: Acute Assessment and Plan Bright red blood per rectum with associated diarrhea. Patient still with right red blood per rectum, no longer experiencing diarrhea illness. Hemoglobin stable this time. GI consulted for further recommendations, patient did undergo EGD/colonoscopy. Patient was found to have colitis, internal and external hemorrhoids, and 2 polyps that were removed. Further studies with MRAs were recommended, testing and results. Stool cultures were ascertained. Leukocytosis: Could be secondary to concentration versus infection. Patient continued on Cipro and Flagyl, CT scan does not indicate any acute abnormality or colitis. Acute kidney injury, secondary to dehydration. Continue IV fluids. Resolved Underlying psychiatric disorder, bipolar disorder, attention deficit disorder: Home medications have been continued DVT prevention: Sequential compression devices, avoid chemical prophylaxis secondary to rectal bleeding Written by Liam Clifton, acting as scribe for Dr. Walton on 11/29/16 at 09: 23. This note was transcribed by scribe Liam Clifton,. I, Dr. Negrito Walton personally performed the history, physical exam, and medical decision making; and confirmed the accuracy of the information in the transcribed note. Authenticated by Dr. Negrito Walton on 11/29/16 at 13:36. Discharge Planning Possible discharge home today after studies complete Activity: Ad mike. Diet: Healthy heart diet Medications per medication reconciliation Follow-up primary medical doctor one week, fashion illustrator in 2 weeks Liam Clifton Nov 29, 2016 09:28 Negrito Walton MD Nov 29, 2016 13:37
[2016-11-29 12:00] VITALS: BP 110/70; PULSE 80; RESP 18; TEMP 98; O2SAT 96
[2016-11-29] MEDS ORDERED: GADODIAMIDE PF 287 MG/ML 10 ML VIAL (for RAD MRI) IV ONE (15:26)
[2016-11-29] MEDS ORDERED: CIPR-9 PO (15:49)
[2016-11-29] MEDS ORDERED: METR-1 PO (15:49)
--- NOTE | 2016-11-29 15:50 | HHI.DCPOC ---
Discharge Care Plan Diagnosis: (1) Bright red blood per rectum (2) Diarrhea in adult patient (3) Colitis Goals to Promote Your Health * To prevent worsening of your condition and complications * To maintain your health at the optimal level Directions to Meet Your Goals Take your medications as prescribed Follow your dietary instruction Follow activity as directed Keep your appointments as scheduled Take your immunizations and boosters as scheduled If your symptoms worsen call your PCP, if no PCP go to Urgent Care Center or Emergency Room Smoking is Dangerous to Your Health. Avoid second hand smoke Call the 24-hour hour crisis hotline for domestic abuse at Liam Clifton Nov 29, 2016 15:50
--- NOTE | 2016-11-29 16:00 | RADHPO ---
EXAM DATE/TIME: 11/29/2016 14:25 [facility] COMPARISON: No previous studies available for comparison. INDICATIONS : Pain. Colitis. Ischemic bowel. CONTRAST: 30 cc Omniscan (gadodiamide) IV MEDICAL HISTORY : Hypertension. Hepatitis C. SURGICAL HISTORY : Tonsillectomy. ENCOUNTER: Initial ACUITY: 2 day PAIN SCORE: 3/10 LOCATION: abdomen TECHNIQUE: Bolus infused MR angiography was performed. The data was postprocessed with a variety of visualizati on algorithms including full-volume maximum-intensity projection, multiplanar sliding thin slab refor mation, and curved planar reformation. FINDINGS: The abdominal aorta is widely patent. The aortic visceral vessels are normal in appearance. Specifica lly, the celiac and branches, SMA and visualized branches, renal arteries and EDWIN are all widely patel nt. CONCLUSION: No evidence of mesenteric artery stenosis Adair Marie MD on November 29, 2016 at 15:56 Board Certified Radiologist. This report was verified electronically.
[2016-11-29 16:48] VITALS: BP 148/85; PULSE 80; RESP 18; TEMP 98; O2SAT 100
--- NOTE | 2016-11-30 13:58 | EKG ---
Date Performed: 11/29/2016 Time Performed: 06:49:12 PTAGE: 61 years EKG: Sinus rhythm Since previous tracing, no significant change noted Normal ECG PREVIOUS TRACING : 07/24/2015 07.35 DOCTOR: Akhil Sampson Interpretating Date/Time 11/30/2016 13:58:02
== END 2016-11-29 17:07 | disposition home or self-care (01) ==
LOC: PHED 15:00 → PHEDA 17:10 → PH3A 18:38
PROVIDERS: ADMIT Internal Medicine; ATTEND Internal Medicine
DX: D12.8 Benign neoplasm of rectum (principal); K29.50 Unspecified chronic gastritis without bleeding; K52.9 Noninfective gastroenteritis and colitis, unspecified; K64.8 Other hemorrhoids; K64.4 Residual hemorrhoidal skin tags; N17.9 Acute kidney failure, unspecified; E86.0 Dehydration; F31.9 Bipolar disorder, unspecified; D72.829 Elevated white blood cell count, unspecified; G47.00 Insomnia, unspecified; K44.9 Diaphragmatic hernia without obstruction or gangrene; B19.20 Unspecified viral hepatitis C without hepatic coma; F17.210 Nicotine dependence, cigarettes, uncomplicated; I10 Essential (primary) hypertension; H91.90 Unspecified hearing loss, unspecified ear
CPT/HCPCS: 00740; 43239; 45380; 45385; 74176; 80048; 80053; 82550; 83605; 83735; 85025; 85610; 85730; 87040; 87205; 87328; 87329; 87493; 87506; 88305; 88312; 93005; 96365; 96375; 97110; 97116; 97162; 99285; A9579; C8900; G0378; G8987; G8988; J0500; J0744; J2270; J2405; J7030